=== PATIENT | male | born 1940 | race Caucasian/White ===

== ENCOUNTER → 2020-08-07 | Outpatient (CLI) | payer MEDICARE ==
[~2020-08-07] MED LIST: ALEN70TA77 PO; AMIT50TA PO; AMLO-211 PO; ATOR20TA PO; ATOR40TA78 PO; CALC1CAP8 PO; CHOL10003 PO; FLAX10004 PO; FURO40TA6 PO; GABA300C PO; GABA600T7 PO; IBUP-1223 PO; LISI-167 PO; LISI-170 PO; METO25TA35 PO; MULT-642 PO; NIFEDIAC CC PO; OMEP-110 PO; OMEP40CA42 PO; OXYC-302 PO; OXYC10TA6 PO; POTA99TA2 PO; VITA400C43 PO; calcium PO; fish oil PO; potassium PO; vitamin d PO; vitamin e PO
[2020-08-07 10:58] LABS: BASOPHILS % (AUTO) 1 % (0-1); EOSINOPHILS % (AUTO) 0 % (1-7); LYMPHOCYTES % (AUTO) 14 % (22-44); MEAN CORPUSCULAR HEMOGLOBIN 33.9 pg (27.5-34.5); MEAN CORPUSCULAR HGB CONC 33.3 g/dL (33.2-36.2); MEAN PLATELET VOLUME 6.8 fL (7.4-10.4); MONOCYTES % (AUTO) 8 % (2-9); NEUTROPHILS % (AUTO) 78 % (42-75); PLATELET COUNT 397 x10^3/uL (130-400); RED BLOOD COUNT 4.02 x10^6/uL (4.38-5.82); RED CELL DISTRIBUTION WIDTH 15.4 % (9.4-14.8)
[2020-08-07 11:01] LABS: MICROSCOPIC NOT IND
[2020-08-07 11:07] LABS: ANION GAP 9 mmol/L (5-15); CALCIUM 9.3 mg/dL (8.5-10.1); CHLORIDE 98 mmol/L (98-107)
[2020-08-07 11:09] LABS: INTERNATIONAL NORMALIZED RATIO 0.98 (0.93-1.1); PROTHROMBIN TIME 10.4 Seconds (9.6-11.5)
[2020-08-07 11:12] LABS: ALANINE AMINOTRANSFERASE 22 U/L (12-78); ALKALINE PHOSPHATASE 102 U/L (45-117); BILIRUBIN,TOTAL 0.5 mg/dL (0.2-1.0); CREATININE 1.06 mg/dL (0.7-1.3); TOTAL PROTEIN 7.2 g/dL (6.4-8.2)
[2020-08-07 12:45] LABS: MD SCAN
== END | disposition home or self-care (01) ==
LOC: STAR 09:43
PROVIDERS: ATTEND Neurological Surgery
DX: Z01.810 Encounter for preprocedural cardiovascular examination (principal); Z01.811 Encounter for preprocedural respiratory examination; Z01.812 Encounter for preprocedural laboratory examination; R79.1 Abnormal coagulation profile; R94.31 Abnormal electrocardiogram [ECG] [EKG]; R82.90 Unspecified abnormal findings in urine; M48.02 Spinal stenosis, cervical region; M47.22 Other spondylosis with radiculopathy, cervical region; I44.0 Atrioventricular block, first degree; Z20.822 Contact with and (suspected) exposure to COVID-19
CPT/HCPCS: 71046; 72050; 80053; 81003; 85025; 85610; 85730; 87635; 93005

== ENCOUNTER 2020-08-11 05:25 | Outpatient (CLI) | payer MEDICARE ==
[~2020-08-11] VITALS: Ht 170.2 cm; Wt 88.6 kg
[~2020-08-11 05:25] MED LIST changes: -OXYC-302 PO; +OXYC1TAB14 PO
[2020-08-11] MEDS ORDERED: BACITRACIN 50,000 UNIT ONE (06:16)
[2020-08-11] MEDS ORDERED: EPINEPHRINE 1 MG/ML, 1ML ONE (06:16)
[2020-08-11] MEDS ORDERED: BUPIVACAINE/PF 0.5% ONE (06:16)
[2020-08-11] MEDS ORDERED: ALEN70TA77 PO (07:42)
[2020-08-11] MEDS ORDERED: ROSU20TA2 PO (07:43)
[2020-08-11] MEDS ORDERED: CYCL7.5T25 PO (07:44)
[2020-08-11] MEDS ORDERED: DOXY100T PO (07:45)
[2020-08-11] MEDS ORDERED: AMIT100T PO (07:46)
[2020-08-11] MEDS ORDERED: FAMO-79 PO (07:47)
[2020-08-11] MEDS ORDERED: IBUP-11 PO (07:48)
[2020-08-11] MEDS ORDERED: LIDOCAINE PATCH (07:58)
[2020-08-11] MEDS ORDERED: LISI-167 PO (07:59)
[2020-08-11] MEDS ORDERED: GABA300C PO (08:00)
[2020-08-11] MEDS ORDERED: MORP-52 PO (08:00)
[2020-08-11] MEDS ORDERED: HYDR-3248 PO (08:01)
== END 2020-08-11 06:30 | disposition home or self-care (01) ==
LOC: OUT 05:25 → UNDOADMIN 05:25 → ORIP 05:25 → OUT 06:30 → UNDODISIN 06:30 → EDSTATUS 07:00
PROVIDERS: ATTEND Neurological Surgery
DX: Z02.9 Encounter for administrative examinations, unspecified (principal)
CPT/HCPCS: J0171

== ENCOUNTER 2020-08-11 06:41 | Inpatient (IN) | payer MEDICARE ==
[~2020-08-11] VITALS: Ht 170.2 cm; Wt 93.0 kg
[2020-08-11] MEDS ORDERED: SODIUM CHLORIDE FLUSH 10ML SYR IVF ONE (07:00)
--- NOTE | 2020-08-11 07:00 | NUR ---
RECVD REPORT FROM DOLORES PLATT.
--- NOTE | 2020-08-11 07:05 | NUR ---
PT IS A 80M WHO CAME IN TODAY FOR SAME DAY SURGERY ON HIS BACK. IN PRE-OP IT WAS NOTED THE PT'S O2 SATS WERE IN THE 70'S AND THE PT WAS ALTERRED. SON AT BEDSIDE AND STATED THE PT DESCRIBED SITTING ON THE BED EARLIER IN THE MORNING AND THINKING THERE WERE HANDS COMING OUT FROM UNDER THE BED. THE PT WAS PLACED ON 2L NC AND TRANSFERRED DOWN TO ER. DR. SZYMANSKI AT BEDSIDE FOR EVAL. PT PLACED ON SYSTEMS SPECIALIST, LABS DRAWN, CONTINUOUS SPO2 IN PLACE. CALL LIGHT WITHIN REACH.
[2020-08-11 07:09] LABS: INTERNATIONAL NORMALIZED RATIO 0.89 (0.93-1.1); PROTHROMBIN TIME 9.4 Seconds (9.6-11.5)
[2020-08-11 07:10] LABS: ALANINE AMINOTRANSFERASE 20 U/L (12-78); ALBUMIN 3.3 g/dL (3.4-5.0); ANION GAP 4 mmol/L (5-15); CHLORIDE 97 mmol/L (98-107)
[2020-08-11 07:15] LABS: ALKALINE PHOSPHATASE 107 U/L (45-117); BILIRUBIN,TOTAL 0.5 mg/dL (0.2-1.0); CREATININE 2.46 mg/dL (0.7-1.3); TROPONIN I 0.102 ng/mL (0.000-0.045)
--- NOTE | 2020-08-11 07:15 | NUR ---
PT IS RESTING COMFORTABLY WITH SON AT BEDSIDE. HE IS 95% ON 2L NC. AWAITING CT RESULTS. CALL LIGHT WITHIN REACH. BYPRODUCTS MAKER, CONTINUOUS SP02, AND CYCLING VITALS IN PLACE.
[2020-08-11 07:21] LABS: BASOPHILS % (AUTO) 0 % (0-1); EOSINOPHILS % (AUTO) 0 % (1-7); LYMPHOCYTES % (AUTO) 6 % (22-44); MEAN CORPUSCULAR HEMOGLOBIN 33.8 pg (27.5-34.5); MEAN CORPUSCULAR HGB CONC 32.7 g/dL (33.2-36.2); MEAN PLATELET VOLUME 7.7 fL (7.4-10.4); MONOCYTES % (AUTO) 6 % (2-9); NEUTROPHILS % (AUTO) 87 % (42-75); PLATELET COUNT 322 x10^3/uL (130-400); RED BLOOD COUNT 3.16 x10^6/uL (4.38-5.82)
--- NOTE | 2020-08-11 07:25 | NUR ---
CAME IN ROOM TO DO FSBS AND NOTICED PATIENT'S RIGHT HAND TWITCHING, PUPILS ARE PINPOINT AND PT APPEARS TO BE ALTERRED WITH POSSIBLE SEIZURE ACTIVITY. SON AT BEDSIDE AND STATES HE HAS NO HX OF SEIZURES. DR ZEPEDA TO BEDSIDE. FSBS 107. PT NOW APPEARS POSTICTAL. MD AWARE. WILL MEDICATE PER ORDER.
[2020-08-11] MEDS ORDERED: LORazepam 2 MG/ML, 1ML ONE (07:29)
[2020-08-11] MEDS ORDERED: LORazepam 2 MG/ML, 1ML IVPush PRN ×2 (07:30→09:00)
[2020-08-11] MEDS ORDERED: ALEN70TA77 PO (07:42)
--- NOTE | 2020-08-11 07:42 | NUR ---
PT MEDICATED PER EMAR AND SZ PADS IN PLACE. SON AT BEDSIDE AND CALL LIGHT WITHIN REACH.
[2020-08-11] MEDS ORDERED: ROSU20TA2 PO (07:43)
[2020-08-11] MEDS ORDERED: CYCL7.5T25 PO (07:44)
[2020-08-11] MEDS ORDERED: DOXY100T PO (07:45)
[2020-08-11] MEDS ORDERED: AMIT100T PO (07:46)
[2020-08-11] MEDS ORDERED: FAMO-79 PO (07:47)
[2020-08-11] MEDS ORDERED: IBUP-11 PO (07:48)
[2020-08-11] MEDS ORDERED: NALOXONE 0.4 MG/ML, 1ML ONE ×2 (07:51→10:10)
[2020-08-11] MEDS ORDERED: LIDOCAINE PATCH (07:58)
[2020-08-11] MEDS ORDERED: LISI-167 PO (07:59)
--- NOTE | 2020-08-11 07:59 | NUR ---
NARCAN GIVEN, PT RESPONDED IMMEDIATELY, PUPILS NO LONGER PINPOINT AND PT NOW A&O3. SON AT BEDSIDE. DR SZYMANSKI AT BEDSIDE GOING OVER PATIENTS HOME MEDICATIONS.
[2020-08-11] MEDS ORDERED: MORP-52 PO (08:00)
[2020-08-11] MEDS ORDERED: GABA300C PO (08:00)
[2020-08-11] MEDS ORDERED: DEXTROSE 50%, 50ML SYRINGE IVPush ONE (08:00)
[2020-08-11] MEDS ORDERED: SODIUM CHLORIDE 0.9% 1,000ML IVBOLUS ONE (08:00)
[2020-08-11] MEDS ORDERED: SODIUM BICARB 8.4%, 50ML SYRINGE IVPush ONE (08:00)
[2020-08-11] MEDS ORDERED: INSULIN REGULAR 100 UNITS/ML, 3ML VIAL IVPush ONE (08:00)
[2020-08-11] MEDS ORDERED: NALOXONE 0.4 MG/ML, 1ML IVPush ONE ×2 (08:00→10:00)
[2020-08-11] MEDS ORDERED: HYDR-3248 PO (08:01)
[2020-08-11] MEDS ORDERED: DEXTROSE 50%, 50ML SYRINGE ONE (08:06)
[2020-08-11] MEDS ORDERED: SODIUM BICARB 8.4%, 50ML SYRINGE ONE (08:06)
[2020-08-11] MEDS ORDERED: INSULIN SINGLE DOSE, ER ONE (08:06)
--- NOTE | 2020-08-11 08:20 | NUR ---
PT AGGITATED, REPOSITIONED FOR COMFORT, DISCUSSED WITH
--- NOTE | 2020-08-11 08:22 | NUR ---
SON WILL TAKE HOME PERSONAL BELONGINGS PT WILL BE ADMITTED
[2020-08-11 08:32] LABS: MD MORPH REVIEW ONLY
[2020-08-11 08:33] LABS: ANISOCYTOSIS 1+; POLYCHROMASIA 1+
[2020-08-11 08:35] LABS: <PLATELET ESTIMATE> ADEQUATE; <PLT MORPHOLOGY> NORMAL PLT MORPH
--- NOTE | 2020-08-11 08:55 | NUR ---
PT CONTINUES TO BE ALTERRED A&OX1. SON AT BEDSIDE, SZ PADS IN PLACE. RESPOSITIONED FOR COMFORT. VITALS UPDATED AND CALL LIGHT IN PLACE.
[2020-08-11] MEDS ORDERED: ONDANSETRON 2MG/ML, 2ML IVPush PRN ×2 (09:00→10:00)
[2020-08-11] MEDS ORDERED: SODIUM CHLORIDE 0.9% 1,000 ML IV ONE (09:00)
[2020-08-11] MEDS ORDERED: SODIUM CHLORIDE FLUSH 10ML SYR IVF PRN (09:00)
--- NOTE | 2020-08-11 09:58 | NUR ---
PT RESTING IN BED WITH SON AT BEDSIDE. HE'S A&O X 1 AND CONTINUES TO HAVE JERKY MOVEMENTS IN BED. BLADDER SCAN SHOWED 400ML. INSERTED WU AND DRAINED 500ML. SAMPLE WALKED TO LAB. VITALS UPDATED. REPOSITIONED PT FOR COMFORT. SZ PADS STILL IN PLACE. CALL LIGHT WITHIN REACH. ADMITTING PROVIDER HAS BEEN TO BEDSIDE FOR ADMIT AND POC.
[2020-08-11] MEDS ORDERED: ONDANSETRON ODT 4 MG PO PRN (10:00)
--- NOTE | 2020-08-11 10:19 | NUR ---
AFTER MEDICATING WITH NARCAN PT IS A&O X3 ALTHOUGH SPEECH IS STILL NOT CLEAR. SON AND U/S AT BEDSIDE. REPOSITIONED PT FOR COMFORT.
[2020-08-11 10:46] LABS: MICROSCOPIC NOT IND
[2020-08-11] MEDS: HEPARIN 5,000 UNITS/ML, 1ML SQ SCH ×2 (11:59→17:33)
[2020-08-11] MEDS: SODIUM CHLORIDE 0.9% 1,000 ML IV SCH ×2 (11:59→23:56)
[2020-08-11] MEDS ORDERED: LIDODERM 5% PATCH TD PRN (12:30)
[2020-08-11 12:42] LABS: CHLORIDE,URINE RANDOM 14 mmol/L; POTASSIUM,URINE RANDOM 33 mmol/L; SODIUM,URINE RANDOM 8 mmol/L
[2020-08-11 13:01] VITALS: BP 121/67
[2020-08-11 13:34] LABS: ANION GAP 9 mmol/L (5-15); CALCIUM 8.7 mg/dL (8.5-10.1); CHLORIDE 100 mmol/L (98-107); CREATININE 1.62 mg/dL (0.7-1.3)
[2020-08-11 13:38] LABS: TROPONIN I 0.129 ng/mL (0.000-0.045)
[2020-08-11 18:33] LABS: TROPONIN I 0.114 ng/mL (0.000-0.045)
[2020-08-11 20:11] VITALS: BP 127/75
[2020-08-11] MEDS: ATORVASTATIN 40 MG TABLET PO SCH (20:16)
[2020-08-11] MEDS: METOPROLOL TARTRATE 25 MG TAB PO SCH (20:16)
[2020-08-11] MEDS: OMEPRAZOLE 20 MG CAPSULE.DR PO SCH (20:16)
[2020-08-12] MEDS: HEPARIN 5,000 UNITS/ML, 1ML SQ SCH ×3 (01:50→17:35)
[2020-08-12 01:51] VITALS: BP 149/82
[2020-08-12 05:00] LABS: BASOPHILS % (AUTO) 0 % (0-1); EOSINOPHILS % (AUTO) 3 % (1-7); LYMPHOCYTES % (AUTO) 11 % (22-44); MEAN CORPUSCULAR HEMOGLOBIN 33.7 pg (27.5-34.5); MEAN CORPUSCULAR HGB CONC 32.8 g/dL (33.2-36.2); MEAN PLATELET VOLUME 7.1 fL (7.4-10.4); MONOCYTES % (AUTO) 7 % (2-9); NEUTROPHILS % (AUTO) 80 % (42-75); PLATELET COUNT 324 x10^3/uL (130-400); RED BLOOD COUNT 3.43 x10^6/uL (4.38-5.82); RED CELL DISTRIBUTION WIDTH 14.8 % (9.4-14.8)
[2020-08-12 05:08] LABS: ALBUMIN 2.9 g/dL (3.4-5.0); ANION GAP 5 mmol/L (5-15); CALCIUM 8.6 mg/dL (8.5-10.1); CHLORIDE 101 mmol/L (98-107)
[2020-08-12 05:12] LABS: MD NO
[2020-08-12 05:23] LABS: ALANINE AMINOTRANSFERASE 17 U/L (12-78); ALKALINE PHOSPHATASE 103 U/L (45-117); BILIRUBIN,TOTAL 0.5 mg/dL (0.2-1.0); CHOL/HDL RATIO 1.5; CHOLESTEROL, TOTAL 138 mg/dL (140-239); CREATININE 0.85 mg/dL (0.7-1.3); HDL CHOL % 69 % (26-37); HDL CHOLESTEROL (DIRECT) 95 mg/dL (40-60); LDL CHOLESTEROL,CALCULATED 31 mg/dL (54-169); LDL/HDL RATIO 0.3 (0.5-3.0); TOTAL PROTEIN 6.5 g/dL (6.4-8.2); TRIGLYCERIDES 60 mg/dL (50-200); VLDL CHOLESTEROL 12 mg/dL (0-25)
[2020-08-12 06:59] VITALS: BP 168/94
[2020-08-12] MEDS: MULTIVITAMIN 1 TABLET PO SCH (07:30)
[2020-08-12] MEDS: CHOLECALCIFEROL 5,000u TAB PO SCH (07:30)
[2020-08-12] MEDS: THIAMINE 100MG TABLET PO SCH (07:30)
[2020-08-12] MEDS: METOPROLOL TARTRATE 25 MG TAB PO SCH ×2 (07:30→20:03)
[2020-08-12] MEDS: OMEPRAZOLE 20 MG CAPSULE.DR PO SCH ×2 (07:30→20:03)
[2020-08-12] MEDS: AMLODIPINE 10 MG TAB PO SCH (07:30)
[2020-08-12] MEDS: SODIUM CHLORIDE 0.9% 1,000 ML IV SCH (12:42)
[2020-08-12 12:55] VITALS: BP 156/88
[2020-08-12 20:01] VITALS: BP 180/93
[2020-08-12] MEDS: ATORVASTATIN 40 MG TABLET PO SCH (20:03)
[2020-08-13] VITALS (7 sets, daily range): BP systolic 140–192; BP diastolic 72–106
[2020-08-13] MEDS ORDERED: LABETALOL 5MG/ML, 20ML ONE (01:00)
[2020-08-13] MEDS ORDERED: LABETALOL 5MG/ML, 20ML IVPush PRN (01:00)
[2020-08-13] MEDS: HEPARIN 5,000 UNITS/ML, 1ML SQ SCH ×3 (01:08→16:39)
[2020-08-13 05:00] LABS: BASOPHILS % (AUTO) 1 % (0-1); EOSINOPHILS % (AUTO) 0 % (1-7); LYMPHOCYTES % (AUTO) 12 % (22-44); MEAN CORPUSCULAR HEMOGLOBIN 33.9 pg (27.5-34.5); MEAN CORPUSCULAR HGB CONC 33.4 g/dL (33.2-36.2); MEAN PLATELET VOLUME 6.9 fL (7.4-10.4); MONOCYTES % (AUTO) 7 % (2-9); NEUTROPHILS % (AUTO) 81 % (42-75); PLATELET COUNT 348 x10^3/uL (130-400); RED BLOOD COUNT 3.78 x10^6/uL (4.38-5.82); RED CELL DISTRIBUTION WIDTH 14.6 % (9.4-14.8)
[2020-08-13] MEDS: SODIUM CHLORIDE 0.9% 1,000 ML IV SCH (05:04)
[2020-08-13 05:07] LABS: MD NO
[2020-08-13 05:11] LABS: ANION GAP 7 mmol/L (5-15); CALCIUM 8.7 mg/dL (8.5-10.1); CHLORIDE 100 mmol/L (98-107); CREATININE 0.58 mg/dL (0.7-1.3)
[2020-08-13] MEDS: OMEPRAZOLE 20 MG CAPSULE.DR PO SCH ×2 (07:53→21:33)
[2020-08-13] MEDS: METOPROLOL TARTRATE 25 MG TAB PO SCH ×2 (07:53→21:33)
[2020-08-13] MEDS: THIAMINE 100MG TABLET PO SCH (07:53)
[2020-08-13] MEDS: MULTIVITAMIN 1 TABLET PO SCH (07:53)
[2020-08-13] MEDS: AMLODIPINE 10 MG TAB PO SCH (07:54)
[2020-08-13] MEDS: CHOLECALCIFEROL 5,000u TAB PO SCH (07:54)
[2020-08-13] MEDS ORDERED: VANCOMYCIN 50 MG/ML ORAL SUSP PO SCH (10:00)
[2020-08-13 11:24] LABS: CLOSTRIDIUM DIFFICILE ANTIGEN NEGATIVE; CLOSTRIDIUM DIFFICILE TOXIN NEGATIVE (Negative)
[2020-08-13] MEDS ORDERED: ALENDRONATE 70 MG TABLET PO SCH ×2 (12:30)
[2020-08-13] MEDS: GABAPENTIN 300 MG CAPSULE PO SCH ×3 (13:08→21:33)
[2020-08-13] MEDS: HYDROcodone/APAP 10/325 MG TABLET PO SCH (13:09)
[2020-08-13] MEDS ORDERED: METO25TA35 PO (14:50)
[2020-08-13] MEDS ORDERED: THIA100T67 PO (14:50)
[2020-08-13] MEDS ORDERED: AMITRIPTYLINE 50 MG TABLET PO SCH (21:00)
[2020-08-13] MEDS ORDERED: AMITRIPTYLINE 25 MG TABLET ONE (21:30)
[2020-08-13] MEDS: ACETAMINOPHEN 325 MG TABLET PO PRN (21:32)
[2020-08-13] MEDS: ATORVASTATIN 40 MG TABLET PO SCH (21:33)
[2020-08-13] MEDS: CHOLESTYRAMINE LIGHT 4GM PACKET PO SCH (21:33)
[2020-08-14] MEDS: HEPARIN 5,000 UNITS/ML, 1ML SQ SCH ×3 (02:00→16:15)
[2020-08-14 02:30] VITALS: BP 123/70
[2020-08-14 08:20] VITALS: BP 160/92
[2020-08-14] MEDS ORDERED: FAMOTIDINE 40 MG TABLET ONE (08:42)
[2020-08-14] MEDS: THIAMINE 100MG TABLET PO SCH (08:45)
[2020-08-14] MEDS: HYDROcodone/APAP 10/325 MG TABLET PO SCH (08:45)
[2020-08-14] MEDS: MULTIVITAMIN 1 TABLET PO SCH (08:46)
[2020-08-14] MEDS: GABAPENTIN 300 MG CAPSULE PO SCH ×2 (08:47→15:09)
[2020-08-14] MEDS: CHOLECALCIFEROL 5,000u TAB PO SCH (08:47)
[2020-08-14] MEDS: OMEPRAZOLE 20 MG CAPSULE.DR PO SCH (08:47)
[2020-08-14] MEDS: CHOLESTYRAMINE LIGHT 4GM PACKET PO SCH (08:48)
[2020-08-14] MEDS: METOPROLOL TARTRATE 25 MG TAB PO SCH (08:48)
[2020-08-14] MEDS: AMLODIPINE 10 MG TAB PO SCH (08:48)
[2020-08-14] MEDS ORDERED: FAMOTIDINE 20 MG TABLET PO SCH (09:00)
[2020-08-14] MEDS: ACETAMINOPHEN 325 MG TABLET PO PRN (11:41)
[2020-08-14] MEDS ORDERED: HYDR-3343 PO ×3 (12:37→14:02)
[2020-08-14 12:42] VITALS: BP 158/90
[2020-08-14 13:54] VITALS: BP 156/82
[2020-08-20] MEDS ORDERED: ALENDRONATE 70 MG TABLET PO SCH (06:30)
== END 2020-08-14 17:55 | disposition home or self-care (01) | DRG 91 ==
LOC: ED 06:48 → EDIP 09:57 → 5SO 11:19
PROVIDERS: ADMIT Hospitalist; ATTEND Internal Medicine
DX: G92 Toxic encephalopathy (principal); N17.0 Acute kidney failure with tubular necrosis; J96.01 Acute respiratory failure with hypoxia; F11.20 Opioid dependence, uncomplicated; E87.1 Hypo-osmolality and hyponatremia; I10 Essential (primary) hypertension; K21.9 Gastro-esophageal reflux disease without esophagitis; G89.29 Other chronic pain; E78.5 Hyperlipidemia, unspecified; M19.90 Unspecified osteoarthritis, unspecified site; M81.0 Age-related osteoporosis without current pathological fracture; E87.5 Hyperkalemia; Z79.899 Other long term (current) drug therapy; Z88.8 Allergy status to other drugs, medicaments and biological substances
CPT/HCPCS: 36415; 70450; 71045; 74018; 76770; 80048; 80053; 80061; 81003; 82140; 82436; 82570; 83036; 83735; 84100; 84133; 84300; 84484; 85025; 85610; 85730; 87040; 87046; 87324; 93005; 93306; 96361; 96374; 96375; 96376; 99291; G0378; J1644; J2310; J2405; J3370; Q0162; J1815; J2060; J7030

== ENCOUNTER 2021-03-29 14:56 | Outpatient (CLI) | payer MEDICARE ==
[~2021-03-29 14:56] MED LIST changes: +AMIT100T PO; +CYCL7.5T25 PO; +DOXY100T PO; +FAMO-79 PO; +HYDR-3248 PO; +HYDR-3343 PO; +IBUP-11 PO; +LIDOCAINE PATCH; +MORP-52 PO; -OMEP40CA42 PO; +OMEP40CA8 PO; +OXYC1TAB12 PO; -OXYC1TAB14 PO; +ROSU20TA2 PO; +THIA100T67 PO
[2021-03-29] MEDS ORDERED: OXYC5TAB98 PO (16:15)
[2021-03-29] MEDS ORDERED: GABA600T7 PO (16:15)
[2021-03-29] MEDS ORDERED: METO25TA35 PO (16:15)
[2021-03-29] MEDS ORDERED: potassium PO (16:15)
[2021-03-29] MEDS ORDERED: FURO-92 PO (16:15)
[2021-03-29] MEDS ORDERED: LISI-170 PO (16:15)
[2021-03-29 16:23] LABS: MICROSCOPIC NOT IND
[2021-03-29 16:23] LABS: BASOPHILS % (AUTO) 1 % (0-1); EOSINOPHILS % (AUTO) 0 % (1-7); LYMPHOCYTES % (AUTO) 19 % (22-44); MEAN CORPUSCULAR HGB CONC 33.1 g/dL (33.2-36.2); MEAN PLATELET VOLUME 7.1 fL (7.4-10.4); MONOCYTES % (AUTO) 10 % (2-9); NEUTROPHILS % (AUTO) 70 % (42-75); PLATELET COUNT 441 x10^3/uL (130-400); RED BLOOD COUNT 3.76 x10^6/uL (4.38-5.82); RED CELL DISTRIBUTION WIDTH 22.9 % (9.4-14.8)
[2021-03-29 16:34] LABS: ALBUMIN 2.7 g/dL (3.4-5.0); ANION GAP 5 mmol/L (5-15); CALCIUM 9.1 mg/dL (8.5-10.1); CHLORIDE 96 mmol/L (98-107)
[2021-03-29 16:37] LABS: ALANINE AMINOTRANSFERASE 134 U/L (12-78); ALKALINE PHOSPHATASE 120 U/L (45-117); BILIRUBIN,TOTAL 0.4 mg/dL (0.2-1.0); CREATININE 1.15 mg/dL (0.7-1.3); TOTAL PROTEIN 6.2 g/dL (6.4-8.2)
[2021-03-29 16:42] LABS: INTERNATIONAL NORMALIZED RATIO 0.96 (0.93-1.1); PROTHROMBIN TIME 10.3 Seconds (9.6-11.5)
[2021-04-11] MEDS ORDERED: METH-640 PO (08:32)
[2021-04-11] MEDS ORDERED: [UNRECOGNIZED DRUG - CODE] PO (08:32)
== END 2021-03-29 23:59 | disposition home or self-care (01) ==
LOC: STAR 14:56
PROVIDERS: ATTEND Neurological Surgery
DX: Z01.818 Encounter for other preprocedural examination (principal); Z01.812 Encounter for preprocedural laboratory examination; Z01.811 Encounter for preprocedural respiratory examination; Z01.810 Encounter for preprocedural cardiovascular examination; M48.061 Spinal stenosis, lumbar region without neurogenic claudication; M43.06 Spondylolysis, lumbar region; R79.1 Abnormal coagulation profile; R82.90 Unspecified abnormal findings in urine; R94.31 Abnormal electrocardiogram [ECG] [EKG]; J98.11 Atelectasis; M51.35 Other intervertebral disc degeneration, thoracolumbar region; M43.8X4 Other specified deforming dorsopathies, thoracic region; I70.0 Atherosclerosis of aorta; Q79.1 Other congenital malformations of diaphragm
CPT/HCPCS: 36415; 71046; 72110; 80053; 81003; 85025; 85610; 85730; 93005

== ENCOUNTER 2021-04-02 13:15 | Outpatient (CLI) | payer MEDICARE ==
[~2021-04-02 13:15] MED LIST changes: +FURO-92 PO; +OXYC5TAB98 PO
[2021-04-11] MEDS ORDERED: [UNRECOGNIZED DRUG - CODE] PO (08:32)
[2021-04-11] MEDS ORDERED: METH-640 PO (08:32)
== END 2021-04-02 23:59 | disposition home or self-care (01) ==
LOC: CFH 13:15
PROVIDERS: ATTEND Physician Assistant Surgical
DX: S22.080A Wedge compression fracture of T11-T12 vertebra, initial encounter for closed fracture (principal); M43.26 Fusion of spine, lumbar region; X58.XXXA Exposure to other specified factors, initial encounter; Y93.89 Activity, other specified; Y92.89 Other specified places as the place of occurrence of the external cause; Y99.8 Other external cause status
CPT/HCPCS: 72131